=== PATIENT | male | born 1995 | race Caucasian/White ===

== ENCOUNTER 2017-12-25 09:03 | Emergency (ER) | payer BC ==
--- NOTE | 2017-12-25 09:24 | EDM.PDOCBH ---
ED HPI GENERAL MEDICAL PROBLEM - General Chief Complaint: Neuro Symptoms/Deficits Stated Complaint: LIGHT HEADED Time Seen by Provider: 12/25/17 09:10 Source of Information: Reports: Patient, RN History Limitations: Reports: Other (limited records available) - History of Present Illness INITIAL COMMENTS - FREE TEXT/NARRATIVE: 22 yo male presents after what sounds like a panic attack that occurred while driving for work this morning. He had one similar attack in the past and was seen in an ER in [place] and they told him it was anxiety. After that his doctor put him on Prozac, but he didn't like how it made him feel so he stopped it and nothing else was tried. He was brought into the ER today by co-workers feeling mostly back to normal. He describes numbness around his mouth and to his fingers. He was light-headed and felt SOB. Has a pHx of tramadol abuse. Drinks heavily most weekends, but not every weekend. Had a half a liter of whiskey last night. Ate only Cheetos for breakfast today. Onset: Today Onset Date: 12/25/17 Onset Time: 08:10 Duration: Minutes:, Improving Location: Reports: Generalized Quality: Reports: Other (no pain) Severity: Moderate Improves with: Reports: Other (?time) Worsens with: Reports: Other (unknown) Context: Reports: Other (heavy drinking of ETOH until midnight last night.) Associated Symptoms: Reports: Shortness of Breath. Denies: Confusion, Chest Pain, Cough, Fever/Chills, Loss of Appetite, Malaise, Nausea/Vomiting, Rash, Seizure, Syncope, Weakness Treatments [employer]: Reports: Other (see below) (none) - Related Data Allergies Allergy/AdvReac Type Severity Reaction Status Date / Time No Known Allergies Allergy Verified 12/25/17 09:14 Home Meds: Home Meds NK [No Known Home Meds] 12/25/17 [History] ED ROS GENERAL - Review of Systems Review Of Systems: See Below Constitutional: Reports: No Symptoms HEENT: Reports: No Symptoms Respiratory: Reports: Shortness of Breath Cardiovascular: Reports: Lightheadedness Endocrine: Reports: No Symptoms GI/Abdominal: Reports: No Symptoms : Reports: No Symptoms Musculoskeletal: Reports: No Symptoms Skin: Reports: Other (hands felt cool) Neurological: Reports: Numbness (hands and around mouth) Psychiatric: Reports: Anxiety. Denies: Depression, Homicidal Ideation, Suicidal Ideation ED EXAM, BEHAVIORAL HEALTH - Physical Exam Exam: See Below Exam Limited By: No Limitations General Appearance: Alert, WD/WN, No Apparent Distress Eye Exam: Bilateral Eye: Normal Inspection Ears: Normal External Exam, Normal Canal, Hearing Grossly Normal, Normal TMs Nose: Normal Inspection, Normal Mucosa, No Blood Throat/Mouth: Normal Inspection, Normal Lips, Normal Teeth, Normal Oropharynx, Normal Voice, No Airway Compromise Head: Atraumatic, Normocephalic Neck: Normal Inspection, Supple, Non-Tender Respiratory/Chest: No Respiratory Distress, Lungs Clear, Normal Breath Sounds, No Accessory Muscle Use Cardiovascular: Regular Rate, Rhythm, No Edema GI/Abdominal: Normal Bowel Sounds, Soft, Non-Tender, No Distention Back Exam: Normal Inspection. No: CVA Tenderness (R), CVA Tenderness (L) Extremities: Normal Inspection, Normal Range of Motion, Non-Tender, No Pedal Edema, Other (slightly tremulous) Neurological: Alert, Normal Mood/Affect, CN II-XII Intact, Normal Cognition, No Motor/Sensory Deficits, Oriented x 3 Psychiatric: Alert, Normal Affect, Normal Cognition, Normal Mood, Oriented Skin Exam: Warm, Dry, Intact, Normal color, No rash COURSE, BEHAVIORAL HEALTH COMP - Course Vital Signs: Last Vital Signs Temp 36.2 C 12/25/17 09:03 Pulse 62 12/25/17 09:03 Resp 18 12/25/17 09:03 BP 155/96 H 12/25/17 09:03 Pulse Ox 100 12/25/17 09:03 Orthostatic Blood Pressure [ 152/88 Standing] Orthostatic Blood Pressure [ 140/79 Sitting] Orthostatic Blood Pressure [ 140/79 Supine] Orthostatic vital in ER positive, gave fluids to drink. Orders, Labs, Meds: Active Orders 24 hr Category Date Time Status Cardiac Monitoring [RC] .As Directed Care 12/25/17 09:08 Active Orthostatic Vital Signs [RC] ASDIRECTED Care 12/25/17 09:08 Active GAMMA GLUTAMYL TRANSFERASE,GGT [REF] Stat Lab 12/25/17 09:28 Received Laboratory Tests 12/25/17 12/25/17 Range/Units 09:28 09:28 WBC 6.5 (4.5-12.0) X10-3/uL RBC 5.50 (4.30-5.75) x10(6)uL Hgb 16.4 H (11.5-15.5) g/dL Hct 47.8 (30.0-51.3) % MCV 87.0 (80-96) fL MCH 29.8 (27.7-33.6) pg MCHC 34.3 (32.2-35.4) g/dL RDW 12.4 (11.5-15.5) % Plt Count 276 (125-369) X10(3)uL Sodium 141 (135-145) mmol/L Potassium 4.5 (3.5-5.3) mmol/L Chloride 102 (100-110) mmol/L Carbon Dioxide 32 (21-32) mmol/L BUN 10 (7-18) mg/dL Creatinine 0.9 (0.70-1.30) mg/dL Est Cr Clr Drug Dosing TNP Estimated GFR (MDRD) > 60 (>60) BUN/Creatinine Ratio 11.1 (9-20) Glucose 159 H (80-116) mg/dL Calcium 9.5 (8.6-10.2) mg/dL Departure - Departure Time of Disposition: 10:29 Disposition: Home, Self-Care 01 Condition: Good Clinical Impression: Orthostasis, Panic attack, Alcohol abuse - Discharge Information Referrals: PCP,None [Primary Care Provider] - Forms: ED Department Discharge - My Orders Last 24 Hours: My Active Orders 12/25/17 09:08 Cardiac Monitoring [RC] .As Directed Orthostatic Vital Signs [RC] ASDIRECTED 12/25/17 09:28 GAMMA GLUTAMYL TRANSFERASE,GGT [REF] Stat - Assessment/Plan Last 24 Hours: My Active Orders 12/25/17 09:08 Cardiac Monitoring [RC] .As Directed Orthostatic Vital Signs [RC] ASDIRECTED 12/25/17 09:28 GAMMA GLUTAMYL TRANSFERASE,GGT [REF] Stat
== END 2017-12-25 11:40 | disposition home or self-care (01) ==
LOC: FB.ED 09:03
DX: F41.0 Panic disorder [episodic paroxysmal anxiety] (principal); F10.10 Alcohol abuse, uncomplicated
CPT/HCPCS: 36415; 80048; 82977; 85027; 99284